=== PATIENT | male | born 1955 | race Caucasian/White ===

== ENCOUNTER 2024-10-12 20:09 | Emergency (ER) | payer MEDICARE, OTHER, SELFPAY ==
[2024-10-12 20:10] VITALS: BP 180/77; PULSE 65; RESP 18; TEMP 36.2; O2SAT 98; BMI 36.2
--- NOTE | 2024-10-12 21:30 | CT_ITS ---
PROCEDURE: SPINE CERVICAL WITHOUT CONTRAS 10/12/2024 REASON FOR EXAM: INJURY TECHNIQUE: Cervical spine CT without contrast. Coronal and Sagittal reconstruction series were provided. One or more dose reduction techniques were used (e.g., Automated exposure control, adjustment of the mA and/or kV according to patient size, use of iterative reconstruction technique COMPARISON: None FINDINGS: Alignment: Straightening of the cervical lordosis. Atlantoaxial interval is maintained. Vertebrae: Vertebral body heights are maintained. Mild loss of disc space at C5-C6 and C6-C7.. Otherwise, disc spaces are maintained. No acute fracture or traumatic subluxation. Scattered degenerative changes without high-grade canal stenosis or neural foraminal narrowing. Soft Tissues: No focal soft tissue abnormality. Other: Imaged lung chanel are clear. CT/Spine Cervical without Contras IMPRESSION: No acute fracture or traumatic subluxation. Degenerative changes without high-grade canal stenosis or neural foraminal narr owing. Reading Location: [facility]
--- NOTE | 2024-10-12 21:30 | CT_ITS ---
PROCEDURE: BRAIN/HEAD WITHOUT CONTRAST 10/12/2024 REASON FOR EXAM: INJURY TECHNIQUE: Head CT without intravenous contrast. Coronal and Sagittal reconstruction series were provided. One or more dose reduction techniques were used (e.g., Automated exposure control, adjustment of the mA and/or kV according to patient size, use of iterative reconstruction technique. COMPARISON: None FINDINGS: No acute intracranial hemorrhage, mass, mass effect, midline shift or pathologic extra-axial fluid collection. Mild parenchymal atrophy with commensurate increase in CSF containing spaces. Patchy white matter hypodensities, patient demographics favor chronic microvascular ischemic changes. Paranasal sinuses and mastoid air cells are clear. The calvarium is grossly intact. CT/Brain/Head without Contrast IMPRESSION: No acute intracranial abnormality. Chronic microvascular ischemia and involutional changes. Reading Location: [facility]
--- NOTE | 2024-10-12 21:46 | EX.ED.GENINJ ---
HPI History of Present Illness Chief Complaint: Head Injury Informant: patient and spouse/S.O. Narrative Narrative: Presents with spouse for evaluation after baseball hit him in the back of his head. He is watching baseball ball came from another field. Slight headache neck pain. No loss of conscious. He takes full dose aspirin daily. He is a diabetic on insulin and oral medicines. No other injuries. Prior similar symptoms: No PFSH PFSH Medical History no medical history Allergy/AdvReac Type Severity Reaction Status Date / Time No Known Allergies Allergy Verified 10/12/24 20:10 Social History Smoking Status: Never smoker ROS ROS ED Constitutional Constitutional ED: Denies chills, fever(s) or sweats Cardiovascular Cardiovascular: Denies chest pain Respiratory/Chest Respiratory/Chest: Denies cough Gastrointestinal Gastrointestinal: Denies abdominal pain, diarrhea, nausea or vomiting Genitourinary Genitourinary ED: Denies dysuria, hematuria or urinary frequency Musculoskeletal Musculoskeletal: Reports neck pain; Denies back pain or extremity pain Integumentary Reports Abrasions; Denies rash or wounds Neurologic Neurologic: Reports headache(s); Denies paresthesias or weakness EXAM Physical Exam Const Vital Signs: 10/12/24 20:10 10/12/24 20:40 10/12/24 22:39 Temperature 97.1 F L 98 F Temperature Source Temporal Pulse Rate 65 78 Respiratory Rate 18 16 Respiratory Effort Normal Non-Labored Blood Pressure 180/77 H 156/78 H Blood Pressure Mean 111 104 Pulse Ox 98 99 Oxygen Delivery Method Room Air Room Air Positive well nourished and well developed Constitutional Narrative: GCS 15. General Appearance ED: well developed HEENT HEENT Narrative: Abrasion on the crown of the scalp, there was no laceration no bleeding. No hematoma. normocephalic Eyes General Eye ED: Yes normal appearance of both eyes Neck Neck Narrative: No midline tenderness, paracervical tenderness upper. No step-offs. Chest Wall inspection of chest normal and palpation of chest normal Resp normal respiratory effort and normal air movement Cardio regular rate and regular rhythm GI soft to palpation Extremity normal to inspection and full ROM Neuro oriented x3 and CN's II-XII intact bilaterally Skin Skin Narrative: See above MDM MDM MDM Narrative Medical decision making narrative: Interventions / MDM: Differential diagnosis: Closed head injury, scalp abrasion, neck strain Diagnosis considered but do not suspect: Intracranial hemorrhage, fracture however CT negative. My EKG interpretation: N/A Imaging independently reviewed and interpreted by myself: CT brain/cervical spine: No intracranial hemorrhage, no fracture noted. Also read by radiology. External documents reviewed: N/A Test considered but not ordered:N/A ED course: Blunt injury from baseball. No loss of conscious. He declines any pain medicine. High velocity injury head and neck pain. Trauma scans head and neck ordered for further evaluation. Ice was placed. CT scans negative. Reassuring findings. Use Tylenol as needed at home. Wound care discussed. Outpatient follow-up. All questions were answered. Re-evaluation: stable Disposition discussed with patient/family/significant other: Patient and significant other. Case discussed with consulting clinician: N/A This note was generated with [employer] software. It may contain incorrect words, spelling, and punctuation that were not noted in checking the note before signing. Radiography Diagnostic Testing: Clinical Impression(s) from Imaging Studies Brain CT 10/12/24 21:30 IMPRESSION: No acute intracranial abnormality. Chronic microvascular ischemia and involutional changes. Reading Location: [facility] Cervical Spine CT 10/12/24 21:30 IMPRESSION: No acute fracture or traumatic subluxation. Degenerative changes without high-grade canal stenosis or neural foraminal narrowing. Reading Location: [facility] Discharge Plan Triage Chief Complaint: Head Injury ED Provider: Uday Roy Dx/Rx/DC Orders Clinical Impression: CHI (closed head injury), Abrasion of scalp, Neck muscle strain Instructions: ED Abrasion, ED Head Injury (Adult), ED Neck Sprain or Strain Primary Care Provider: Wiliam Anderson Referrals: Wiliam Anderson MD [Primary Care Provider] - 1 Week Activity Restrictions/Additional Instructions: Your CT brain and cervical spine negative. Wound care as discussed. Use Tylenol up to 1 g every 6 hours as needed. Follow-up with your doctor. Print Language: Occitan Disposition Disposition: Home, Self Care Discharge Date/Time: 10/12/24 22:41
[2024-10-12 22:39] VITALS: BP 156/78; PULSE 78; RESP 16; TEMP 36.6; O2SAT 99
== END 2024-10-12 22:41 | disposition home or self-care (01) ==
PROVIDERS: Emergency Provider Emergency Medicine; PCP Family Medicine; Visit Provider Emergency Medicine
DX: S16.1XXA Strain of muscle, fascia and tendon at neck level, initial encounter (principal); E11.9 Type 2 diabetes mellitus without complications; Z79.4 Long term (current) use of insulin; S00.01XA Abrasion of scalp, initial encounter; W21.03XA Struck by baseball, initial encounter; Y93.89 Activity, other specified; Z79.82 Long term (current) use of aspirin; Z79.899 Other long term (current) drug therapy
CPT/HCPCS: 70450; 72125; 99282